=== PATIENT | female | born 1950 | race Hispanic/Latino ===

== ENCOUNTER 2018-04-29 19:27 | Inpatient (IN) | payer MEDICARE, MEDICAID ==
[2018-04-29 20:26] LABS: BASO # 0.1 K/uL (0.0-0.2); BASO % 0.3 % (0.0-2.0); EOS % 0.2 % (0.0-4.0); HEMOGLOBIN 14.2 g/dL (11.0-16.0); MEAN CELL VOLUME 89.5 fL (81.0-99.0); MEAN CORPUSCULAR HEMOGLOBIN 30.2 pg (27.0-31.0); MEAN CORPUSCULAR HGB CONC 33.7 g/dL (33.0-37.0); MEAN PLATELET VOLUME 9.5 fL (7.2-11.7); MONO % 9.8 % (0.0-10.0); NEUT % 74.7 % (50.0-75.0); RBC 4.7 Mil/uL (3.80-5.20); RED CELL DISTRIBUTION WIDTH 13.7 % (11.5-14.5); WHITE BLOOD COUNT 20.1 K/uL (4.8-10.8)
--- NOTE | 2018-04-29 20:27 | C.PDOC ---
History Of Present Illness 68 year old female with a history of seizure and HTN presents to the emergency department with complaints of lower abdominal pain. Patient states that her pain began on Monday04-27-18 after eating a sub. Patient reports vomiting and currently still complains of lower abdominal pain. Time Seen by Provider: 04/29/18 19:44 Chief Complaint (Nursing): Abdominal Pain History Per: Patient History/Exam Limitations: no limitations Onset/Duration Of Symptoms: Days (2) Current Symptoms Are (Timing): Still Present Location Of Pain/Discomfort: Other (lower abdomen) Quality Of Discomfort: "Pain" Associated Symptoms: Vomiting. denies: Fever, Chills, Nausea Past Medical History Reviewed: Historical Data, Nursing Documentation, Vital Signs Vital Signs: Last Vital Signs Temp 98.0 F 04/29/18 19:29 Pulse 80 04/29/18 19:29 Resp 20 04/29/18 19:29 BP 148/74 04/29/18 19:29 Pulse Ox 97 04/29/18 19:29 - Medical History PMH: Anxiety, HTN, Hypercholesterolemia, Seizures Surgical History: Carotid Endarterectomy - [facility] Procedures LOCAL EXCIS BREAST LES (06/26/12) Family History: States: No Known Family Hx - Social History Hx Tobacco Use: No Hx Alcohol Use: No Hx Substance Use: No - Immunization History Hx Tetanus Toxoid Vaccination: Yes Hx Influenza Vaccination: Yes Hx Pneumococcal Vaccination: Yes Review Of Systems Except As Marked, All Systems Reviewed And Found Negative. Constitutional: Negative for: Fever, Chills Cardiovascular: Negative for: Chest Pain Respiratory: Negative for: Cough, Shortness of Breath Gastrointestinal: Positive for: Vomiting, Abdominal Pain. Negative for: Nausea, Diarrhea Physical Exam - Physical Exam Appears: Non-toxic, No Acute Distress Skin: Normal Color, Warm, Dry Head: Atraumatic, Normacephalic Eye(s): bilateral: Normal Inspection, PERRL, EOMI Nose: Normal Oral Mucosa: Moist Neck: Normal, Supple Chest: Symmetrical, No Tenderness Cardiovascular: Rhythm Regular, No Murmur Respiratory: Normal Breath Sounds, No Rales, No Rhonchi, No Wheezing Gastrointestinal/Abdominal: Soft, No Tenderness, No Guarding, No Rebound Extremity: Normal ROM Neurological/Psych: Oriented x3, Normal Speech, Normal Cognition ED Course And Treatment - Laboratory Results Result Diagrams: 04/29/18 20:13 04/29/18 20:13 O2 Sat by Pulse Oximetry: 97 (RA) Pulse Ox Interpretation: Normal Medical Decision Making Medical Decision Making: ro colitis appendicits uti Plan: CT Abdomen and Pelvis CMP Lipase CBC PTT Prothrombin Time Urinalysis ct shows enteritis. high leukocytosi empiric antibiotics given. case discusse dwith dr haney. accepts. IMPRESSION: 1. Evidence of diffuse enteritis. 2. A proximal left renal arterial vascular stent is noted. Disposition - Disposition Disposition: HOSPITALIZED Disposition Time: 20:00 Condition: STABLE - Clinical Impression Clinical Impression: Enteritis Decision To Admit - InPatient: Physician Admission Certification:: needs iv antibiotics - . Bed Request Type: Regular Admitting Physician: Piter Haney Patient Diagnosis: Enteritis
[2018-04-29 20:33] LABS: INR 1.9; PROTHROMBIN TIME 21.3 SECONDS (9.7-12.2)
[2018-04-29 20:41] LABS: ALB/GLOB RATIO 1.1 (1.0-2.1); ALBUMIN 4.4 g/dL (3.5-5.0); CALCIUM 9.3 mg/dl (8.6-10.4)
[2018-04-29] MEDS ORDERED: Potassium Chloride 20 mEq ER Tab PO STA (20:43)
[2018-04-29] MEDS ORDERED: Potassium Chloride 20 mEq ER Tab PO ONE ×2 (20:51→20:52)
[2018-04-29] MEDS ORDERED: Piperacillin/Tazobact 3.375 gm 100 ML IVPB STA (21:57)
[2018-04-29] MEDS ORDERED: Piperacillin/Tazobact 3.375 gm 100 ML IVPB ONE (22:13)
[2018-04-29] MEDS: Ciprofloxacin 200mg/100ml D5W 100 ML IVPB SCH (23:45)
[2018-04-30] MEDS: Lactated Ringer's 1,000 ML IV SCH ×2 (00:07→13:04)
[2018-04-30] MEDS: metroNIDAZOLE IV 500 mg/100 ml 250 MG in Premixed IV 1 EA IVPB SCH ×4 (00:20→21:46)
[2018-04-30 01:33] VITALS: RESP 20
[2018-04-30 07:26] LABS: BASO # 0.1 K/uL (0.0-0.2); BASO % 0.4 % (0.0-2.0); EOS # 0.1 K/uL (0.0-0.7); EOS % 0.5 % (0.0-4.0); HEMOGLOBIN 13.2 g/dL (11.0-16.0); LYMPH # 1.7 K/uL (1.0-4.3); LYMPH % 11.8 % (20.0-40.0); MEAN CELL VOLUME 89.5 fL (81.0-99.0); MEAN CORPUSCULAR HEMOGLOBIN 30.6 pg (27.0-31.0); MEAN CORPUSCULAR HGB CONC 34.2 g/dL (33.0-37.0); MEAN PLATELET VOLUME 9.8 fL (7.2-11.7); MONO # 1.4 K/uL (0.0-0.8); MONO % 9.5 % (0.0-10.0); NEUT # 11.3 K/uL (1.8-7.0); NEUT % 77.8 % (50.0-75.0); NRBC % 0.1 % (0.0-2.0); RBC 4.29 Mil/uL (3.80-5.20); RED CELL DISTRIBUTION WIDTH 13.6 % (11.5-14.5); WHITE BLOOD COUNT 14.5 K/uL (4.8-10.8)
[2018-04-30 08:19] LABS: ALB/GLOB RATIO 1.1 (1.0-2.1); ALBUMIN 3.9 g/dL (3.5-5.0); CALCIUM 8.5 mg/dl (8.6-10.4)
[2018-04-30] MEDS: Magnesium Sulfate 1 gm in D5W 1 GM/100 ML BAG IVPB SCH ×2 (08:50→10:06)
[2018-04-30] MEDS ORDERED: Potassium Phosphate 15 MMOLE in Dextrose 5% In Water 250 ML IVPB ONE (09:00)
[2018-04-30] MEDS: Pantoprazole 40 mg EC Tab PO SCH (09:30)
--- NOTE | 2018-04-30 10:32 | US ---
Abdominal ultrasound HISTORY: Abdominal pain. COMPARISON: CT scan dated 04/29/2018 Technique: Real-time sonography was performed through the abdomen. Findings: Liver: 18.1 centimeters in length. Prominent. Increased echogenicity of the hepatic parenchymal cortex suggestive for fatty infiltration versus hepatic parenchymal disease. Clinical correlation. Gallbladder: No calculi or sludge. Normal wall thickness of 2.3 millimeters. Negative sonographic Liz's sign. Common bile duct measures 4.8 millimeters, within normal limits. Limited visualization of the pancreas. Spleen measures 11.8 centimeters in length, within normal limits. Visualized aorta and IVC are preserved. Right kidney: 10.4 x 4.5 x 4.8 centimeters. No calculi or hydronephrosis. Left kidney: 9.5 x 4.5 x 4.8 centimeters. No calculi or hydronephrosis. Impression: 1. Hepatomegaly with increased echogenicity of the hepatic parenchymal cortex suggestive for fatty infiltration versus hepatic parenchymal disease. Clinical correlation. 2. Limited visualization of the pancreas.
[2018-04-30] MEDS: Ciprofloxacin 200mg/100ml D5W 100 ML IVPB SCH ×2 (10:48→22:32)
--- NOTE | 2018-04-30 12:45 | CT ---
PROCEDURE: CT Abdomen and Pelvis without Oral or IV contrast. HISTORY: lower abd pain,leukocytosis COMPARISON: Abdominal ultrasound performed 04/30/18 TECHNIQUE: Contiguous axial images of the abdomen and pelvis. No oral or IV contrast administered. Coronal and Sagittal reformats generated and reviewed. Radiation dose: Total exam DLP = 964.95 mGy-cm. This CT exam was performed using one or more of the following dose reduction techniques: Automated exposure control, adjustment of the mA and/or kV according to patient size, and/or use of iterative reconstruction technique. FINDINGS: There is limited evaluation of the solid organs without the administration of IV contrast. LOWER THORAX: No visible consolidation, pleural effusion, or pneumothorax. LIVER: Unremarkable unenhanced appearance. GALLBLADDER AND BILE DUCTS: Unremarkable unenhanced appearance. PANCREAS: Unremarkable unenhanced appearance. SPLEEN: Unremarkable unenhanced appearance. ADRENALS: Bilateral adrenal gland hypertrophy. KIDNEYS AND URETERS: No hydronephrosis or obstructing renal calculus. BLADDER: Under distention of the urinary bladder limits evaluation. REPRODUCTIVE: Uterus is present with evidence of degenerating fibroids. APPENDIX: The appendix appears within normal limits of caliber. No secondary signs of acute appendicitis. BOWEL: The stomach is nondistended. Lack of oral contrast limits evaluation for bowel pathology. The bowel loops appear within normal limits of caliber without evidence of intestinal obstruction. Thick-walled loops of fluid-filled small bowel may be related to enteritis. PERITONEUM: No significant free fluid. No definite free air. LYMPH NODES: No bulky lymphadenopathy identified. VASCULATURE: Proximal left renal artery vascular stent. Atherosclerotic calcifications of the aorta and branches. Short segment in dissection, infrarenal lower abdominal aorta. BONES: Osseous demineralization. Degenerative changes. OTHER FINDINGS: None. IMPRESSION: Thick-walled loops of fluid-filled small bowel may be related to enteritis. Correlate clinically. Bilateral adrenal gland hypertrophy. Proximal left renal artery vascular stent. Atherosclerotic calcifications of the aorta and branches. Short segment in dissection, infrarenal lower abdominal aorta. Preliminary impression was provided by [employer].
--- NOTE | 2018-04-30 13:09 | CP.PCM.HP ---
History of Present Illness - History of Present Illness History of Present Illness: Chief complaint: Abdominal pain vomiting and diarrhea HPI: 68-year-old female with a history of hypertension, hypercholesterolemia, CVA, renal artery stenosis, status post a stent in the left renal artery, carotid endarterectomy, CAD, status post heart disease stent, history of seizure activities, chronic smoker and a history of anxiety depression. Patient was in her usual state of health. 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 Since then she was not able to eat well. Appetite was very poor. She gets more dehydrated. Not even water, she could not drink. She was having increasing weakness, unable to stand up. Low-grade fever also noted. Chills noted. She was also having some headache. Past medical history: Hypertension, hypercholesterolemia, multiple CVA, history of renal artery stenosis, bilateral carotid endarterectomy, CAD, status post stent, anxiety and depression. Past surgical history: Thyroidectomy, carotid endarterectomy, left renal stent, left arm fracture malunion, history of cardiac stenting. Allergies: Allergic to penicillin, ibuprofen. Family history: Father had a history of lung cancer and a history of smoking Mother also had a history of heart disease and siblings had a history of prostate cancer Social history: Patient is a smoker smokes almost 2 packs/day denies any alcohol. She drinks coffee daily. Current medications: Metformin, amlodipine, aspirin, sotalol, hydrochlorothiazide, atorvastatin, alendronate, Nexium, Eliquis, sertraline, vitamin D, calcium. Review of system: Complaining of dryness of mouth, weakness, fatigue. Poor appetite. Poor intake. Episodes of nausea. Multiple episodes of vomiting. Abdominal cramps pains. Diarrhea one episode of large. Weakness in the legs. On examination: Vital signs are stable. Mild orthostasis noted. Chest good air entry Regular heart sounds noted Abdomen diffusely tenderness present. Extremities no pedal edema PROPERTY SPECIALIST alert awake oriented x3 no functional neurological deficit Patient's labs reviewed Highly elevated WBC noted, mostly lymphocytosis noted CT scan of the abdomen and pelvis with oral contrast showing evidence of colitis, enteritis and gastroenteritis noted Assessment and recommendation: Patient is a 68-year-old female with a history of hypertension hypercholesterolemia CAD, carotid endarterectomy, renal stent for renal artery stenosis. COPD. History of smoking. Now admitted with a severe diffuse gastroenteritis with elevated white count. Septicemia likely. Underlying infectious diarrhea cannot be ruled out. Patient currently placed on IV antibiotic. She tolerated Zosyn yesterday. Currently on Cipro IV, as well as Flagyl intravenously. Stool workup currently pending. IV fluids. Will increase slowly the oral feeding. DVT GI prophylaxis Currently on Eliquis. We will continue to monitor and will follow the patient. Possible discharge plan once the diarrhea improves. And if she tolerates oral feeding and if the WBC improves. GI evaluation pending Present on Admission - Present on Admission Any Indicators Present on Admission: No History of DVT/PE: No History of Uncontrolled Diabetes: No Urinary Catheter: No Decubitus Ulcer Present: No Past Patient History - Past Medical History & Family History Past Medical History?: Yes - Past Social History Smoking Status: Heavy Smoker > 10 Cigarettes Daily - CARDIAC Hx Cardiac Disorders: Yes Hx Hypercholesterolemia: Yes Hx Hypertension: Yes - PULMONARY Hx Respiratory Disorders: Yes Hx Chronic Obstructive Pulmonary Disease (COPD): Yes Other/Comment: hx of intubation - NEUROLOGICAL Hx Neurological Disorder: Yes Hx Seizures: Yes - HEENT Hx HEENT Problems: No - RENAL Hx Chronic Kidney Disease: No - ENDOCRINE/METABOLIC Hx Endocrine Disorders: No - HEMATOLOGICAL/ONCOLOGICAL Hx Blood Disorders: No - INTEGUMENTARY Hx Dermatological Problems: No - MUSCULOSKELETAL/RHEUMATOLOGICAL Hx Musculoskeletal Disorders: No Hx Falls: No - GASTROINTESTINAL Hx Gastrointestinal Disorders: No - GENITOURINARY/GYNECOLOGICAL Hx Genitourinary Disorders: No - PSYCHIATRIC Hx Psychophysiologic Disorder: No Hx Substance Use: No - SURGICAL HISTORY Hx Surgeries: Yes Hx Carotid Endarterectomy: Yes - ANESTHESIA Hx Anesthesia: Yes Hx Anesthesia Reactions: No Hx Malignant Hyperthermia: No Meds Home Medications: Home Medication List Medication Instructions Recorded Confirmed Type Ciprofloxacin [Cipro] 500 mg PO BID #20 tab 04/29/18 Rx metroNIDAZOLE [Flagyl] 500 mg PO TID #30 tab 04/29/18 Rx Allergies/Adverse Reactions: Allergies Allergy/AdvReac Type Severity Reaction Status Date / Time No Known Allergies Allergy Verified 04/29/18 19:32 Results - Vital Signs Recent Vital Signs: Last Vital Signs Temp 99.9 F H 04/30/18 07:14 Pulse 96 H 04/30/18 09:28 Resp 20 04/30/18 07:14 BP 152/74 H 04/30/18 09:28 Pulse Ox 94 L 04/30/18 07:14 - Labs Result Diagrams: 04/30/18 07:09 04/30/18 07:09 Labs: Laboratory Results - last 24 hr 04/29/18 04/29/18 04/29/18 20:13 20:13 20:13 WBC 20.1 H D RBC 4.70 Hgb 14.2 Hct 42.0 MCV 89.5 MCH 30.2 MCHC 33.7 RDW 13.7 Plt Count 256 MPV 9.5 Neut % (Auto) 74.7 Lymph % (Auto) 15.0 L [place] % (Auto) 9.8 Eos % (Auto) 0.2 Baso % (Auto) 0.3 Neut # (Auto) 15.0 H Lymph # (Auto) 3.0 [place] # (Auto) 2.0 H Eos # (Auto) 0.0 Baso # (Auto) 0.1 PT 21.3 H INR 1.9 APTT 36 H Sodium 134 Potassium 3.2 L Chloride 91 L Carbon Dioxide 30 Anion Gap 16 BUN 22 H Creatinine 1.6 H Est GFR ( Amer) 39 Est GFR (Non-Af Amer) 32 Random Glucose 156 H D Calcium 9.3 Phosphorus Magnesium Total Bilirubin 0.8 AST 35 ALT 15 Alkaline Phosphatase 89 Total Protein 8.4 H Albumin 4.4 Globulin 4.0 H Albumin/Globulin Ratio 1.1 Lipase 36 04/30/18 04/30/18 07:09 07:09 WBC 14.5 H RBC 4.29 Hgb 13.2 Hct 38.4 MCV 89.5 MCH 30.6 MCHC 34.2 RDW 13.6 Plt Count 202 MPV 9.8 Neut % (Auto) 77.8 H Lymph % (Auto) 11.8 L [place] % (Auto) 9.5 Eos % (Auto) 0.5 Baso % (Auto) 0.4 Neut # (Auto) 11.3 H Lymph # (Auto) 1.7 [place] # (Auto) 1.4 H Eos # (Auto) 0.1 Baso # (Auto) 0.1 PT INR APTT Sodium 132 Potassium 3.0 L Chloride 92 L Carbon Dioxide 32 H Anion Gap 11 BUN 22 H Creatinine 1.4 H Est GFR ( Amer) 46 Est GFR (Non-Af Amer) 38 Random Glucose 139 H Calcium 8.5 L Phosphorus 1.9 L Magnesium 1.4 L Total Bilirubin 0.8 AST 36 ALT 10 Alkaline Phosphatase 86 Total Protein 7.4 Albumin 3.9 Globulin 3.5 Albumin/Globulin Ratio 1.1 Lipase
--- NOTE | 2018-04-30 16:34 | CP.PCM.CON ---
History of Present Illness - History of Present Illness History of Present Illness: CC: Diarrhea HPI: 68 yo woman with multiple medical problems developed severe watery malodorous black diarrhea 2 nights ago after eating a [employer] and TV dinner. About 6 hours later she felt lower abdominal cramping, followed by nausea then persistent diarrhea. Pt denies fevers, chills, blood in stool. Pt was found to have leukocytosis on admission and non-contrast abdominal CT showed thieckened loops of Small Bowel. Patient was placed on Cipro and Flagyl. Review of Systems - Constitutional Constitutional: absent: Chills, Fever, Weight Loss - EENT Eyes: absent: Change in Vision - Cardiovascular Cardiovascular: absent: Chest Pain - Respiratory Respiratory: absent: Dyspnea - Gastrointestinal Gastrointestinal: Abdominal Pain, Diarrhea. absent: Hematochezia - Psychiatric Psychiatric: Anxiety Past Patient History - Past Medical History & Family History Past Medical History?: Yes - Past Social History Smoking Status: Heavy Smoker > 10 Cigarettes Daily - CARDIAC Hx Cardiac Disorders: Yes Hx Hypercholesterolemia: Yes Hx Hypertension: Yes - PULMONARY Hx Respiratory Disorders: Yes Hx Chronic Obstructive Pulmonary Disease (COPD): Yes Other/Comment: hx of intubation - NEUROLOGICAL Hx Neurological Disorder: Yes Hx Seizures: Yes - HEENT Hx HEENT Problems: No - RENAL Hx Chronic Kidney Disease: No - ENDOCRINE/METABOLIC Hx Endocrine Disorders: No - HEMATOLOGICAL/ONCOLOGICAL Hx Blood Disorders: No - INTEGUMENTARY Hx Dermatological Problems: No - MUSCULOSKELETAL/RHEUMATOLOGICAL Hx Musculoskeletal Disorders: No Hx Falls: No - GASTROINTESTINAL Hx Gastrointestinal Disorders: No - GENITOURINARY/GYNECOLOGICAL Hx Genitourinary Disorders: No - PSYCHIATRIC Hx Psychophysiologic Disorder: No Hx Substance Use: No - SURGICAL HISTORY Hx Surgeries: Yes Hx Carotid Endarterectomy: Yes - ANESTHESIA Hx Anesthesia: Yes Hx Anesthesia Reactions: No Hx Malignant Hyperthermia: No Meds Home Medications: Home Medication List Medication Instructions Recorded Confirmed Type Ciprofloxacin [Cipro] 500 mg PO BID #20 tab 04/29/18 Rx metroNIDAZOLE [Flagyl] 500 mg PO TID #30 tab 04/29/18 Rx Allergies/Adverse Reactions: Allergies Allergy/AdvReac Type Severity Reaction Status Date / Time No Known Allergies Allergy Verified 04/29/18 19:32 - Medications Medications: Current Medications Acetaminophen (Tylenol 325mg Tab) 650 mg PO Q6 PRN PRN Reason: Pain, moderate (4-7) Amlodipine Besylate (Norvasc) 10 mg PO DAILY [facility] Last Admin: 04/30/18 09:29 Dose: 10 mg Apixaban (Eliquis) 5 mg PO BID [facility] Last Admin: 04/30/18 09:30 Dose: 5 mg Aspirin (Aspirin Chewable) 81 mg PO DAILY [facility] Last Admin: 04/30/18 09:29 Dose: 81 mg Clonazepam (Klonopin) 1 mg PO HS [facility] Ciprofloxacin (Cipro 200mg/100ml D5w) 100 mls @ 67 mls/hr IVPB Q12H [facility]; Protocol Last Admin: 04/30/18 10:48 Dose: 67 mls/hr Metronidazole 250 mg/ (Miscellaneous) 50 mls @ 100 mls/hr IVPB Q8H [facility]; Protocol Last Admin: 04/30/18 13:55 Dose: 100 mls/hr Lactated Ringer's (Lactated Ringer's) 1,000 mls @ 70 mls/hr IV .[id number] [facility] Last Admin: 04/30/18 13:04 Dose: Not Given Levetiracetam (Keppra) 500 mg PO BID [facility] Last Admin: 04/30/18 09:30 Dose: 500 mg Pantoprazole Sodium (Protonix Ec Tab) 40 mg PO DAILY [facility] Last Admin: 04/30/18 09:30 Dose: 40 mg Rosuvastatin Calcium (Crestor) 40 mg PO HS [facility] Sertraline HCl (Zoloft) 100 mg PO HS [facility] Sotalol HCl (Betapace) 80 mg PO BID [facility] Last Admin: 04/30/18 09:30 Dose: 80 mg Physical Exam - Constitutional Appears: Well, No Acute Distress - Head Exam Head Exam: ATRAUMATIC, NORMOCEPHALIC - Eye Exam Eye Exam: absent: Scleral icterus - Neck Exam Neck exam: Positive for: Normal Inspection - Respiratory Exam Respiratory Exam: Clear to Auscultation Bilateral - Cardiovascular Exam Cardiovascular Exam: REGULAR RHYTHM - GI/Abdominal Exam GI & Abdominal Exam: Soft. absent: Mass, Organomegaly, Tenderness Results - Vital Signs Recent Vital Signs: Last Vital Signs Temp 97.2 F L 04/30/18 15:00 Pulse 68 04/30/18 15:00 Resp 20 04/30/18 15:00 BP 171/73 H 04/30/18 15:00 Pulse Ox 95 04/30/18 15:00 - Labs Result Diagrams: 04/30/18 07:09 04/30/18 07:09 Labs: Laboratory Results - last 24 hr 04/29/18 04/29/18 04/29/18 20:13 20:13 20:13 WBC 20.1 H D RBC 4.70 Hgb 14.2 Hct 42.0 MCV 89.5 MCH 30.2 MCHC 33.7 RDW 13.7 Plt Count 256 MPV 9.5 Neut % (Auto) 74.7 Lymph % (Auto) 15.0 L [place] % (Auto) 9.8 Eos % (Auto) 0.2 Baso % (Auto) 0.3 Neut # (Auto) 15.0 H Lymph # (Auto) 3.0 Stanley # (Auto) 2.0 H Eos # (Auto) 0.0 Baso # (Auto) 0.1 PT 21.3 H INR 1.9 APTT 36 H Sodium 134 Potassium 3.2 L Chloride 91 L Carbon Dioxide 30 Anion Gap 16 BUN 22 H Creatinine 1.6 H Est GFR ( Amer) 39 Est GFR (Non-Af Amer) 32 Random Glucose 156 H D Calcium 9.3 Phosphorus Magnesium Total Bilirubin 0.8 AST 35 ALT 15 Alkaline Phosphatase 89 Total Protein 8.4 H Albumin 4.4 Globulin 4.0 H Albumin/Globulin Ratio 1.1 Lipase 36 Stool Occult Blood 04/30/18 04/30/18 04/30/18 07:09 07:09 13:12 WBC 14.5 H RBC 4.29 Hgb 13.2 Hct 38.4 MCV 89.5 MCH 30.6 MCHC 34.2 RDW 13.6 Plt Count 202 MPV 9.8 Neut % (Auto) 77.8 H Lymph % (Auto) 11.8 L Stanley % (Auto) 9.5 Eos % (Auto) 0.5 Baso % (Auto) 0.4 Neut # (Auto) 11.3 H Lymph # (Auto) 1.7 Stanley # (Auto) 1.4 H Eos # (Auto) 0.1 Baso # (Auto) 0.1 PT INR APTT Sodium 132 Potassium 3.0 L Chloride 92 L Carbon Dioxide 32 H Anion Gap 11 BUN 22 H Creatinine 1.4 H Est GFR ( Amer) 46 Est GFR (Non-Af Amer) 38 Random Glucose 139 H Calcium 8.5 L Phosphorus 1.9 L Magnesium 1.4 L Total Bilirubin 0.8 AST 36 ALT 10 Alkaline Phosphatase 86 Total Protein 7.4 Albumin 3.9 Globulin 3.5 Albumin/Globulin Ratio 1.1 Lipase Stool Occult Blood Positive H Assessment & Plan (1) Enteritis Assessment and Plan: Acute diarrheal illness, likely infectious. Stool positive OB (on Eliquis and ASA), with stable Hgb levels. Rec: check stools for culture, hydrate IV, conservative management. Status: Acute
[2018-04-30 19:54] LABS: C DIFF TOXIN A B NEGATIVE (NEGATIVE)
[2018-04-30 20:48] LABS: SQUAMOUS EPITHIAL 6 /hpf (0-5); URINE BACTERIA RARE (<OCC); URINE BILIRUBIN NEGATIVE (NEGATIVE); URINE BLOOD 1+ (NEGATIVE); URINE CLARITY Hazy (Clear); URINE COLOR Amber (YELLOW); URINE GLUCOSE (UA) NORMAL (Normal); URINE LEUKOCYTE ESTERASE 2+ Leu/uL (Negative); URINE PROTEIN NEGATIVE (NEGATIVE); URINE UROBILINOGEN NORMAL mg/dL (0.2-1.0)
[2018-04-30 21:42] LABS: FECAL LEUKOCYTES NEGATIVE (NEGATIVE)
[2018-05-01] MEDS: Lactated Ringer's 1,000 ML IV SCH (03:21)
[2018-05-01] MEDS: metroNIDAZOLE IV 500 mg/100 ml 250 MG in Premixed IV 1 EA IVPB SCH (05:47)
[2018-05-01 08:09] LABS: BASO % 0.4 % (0.0-2.0); EOS # 0.2 K/uL (0.0-0.7); EOS % 1.5 % (0.0-4.0); HEMOGLOBIN 12.7 g/dL (11.0-16.0); LYMPH # 1.7 K/uL (1.0-4.3); LYMPH % 14.8 % (20.0-40.0); MEAN CELL VOLUME 89.3 fL (81.0-99.0); MEAN CORPUSCULAR HEMOGLOBIN 30.8 pg (27.0-31.0); MEAN CORPUSCULAR HGB CONC 34.5 g/dL (33.0-37.0); MEAN PLATELET VOLUME 9.5 fL (7.2-11.7); MONO # 0.7 K/uL (0.0-0.8); MONO % 6.1 % (0.0-10.0); NEUT % 77.2 % (50.0-75.0); NRBC % 0.1 % (0.0-2.0); RBC 4.12 Mil/uL (3.80-5.20); RED CELL DISTRIBUTION WIDTH 13.5 % (11.5-14.5); WHITE BLOOD COUNT 11.7 K/uL (4.8-10.8)
[2018-05-01 08:13] VITALS: TEMP 98.1; O2SAT 93
[2018-05-01 08:36] LABS: ALBUMIN 3.7 g/dL (3.5-5.0); CALCIUM 8.5 mg/dl (8.6-10.4)
[2018-05-01 09:38] VITALS: BP 129/71; PULSE 98
[2018-05-01] MEDS: Pantoprazole 40 mg EC Tab PO SCH (09:52)
[2018-05-01] MEDS: Ciprofloxacin 200mg/100ml D5W 100 ML IVPB SCH (10:18)
--- NOTE | 2018-05-01 10:33 | CP.PCM.DIS ---
Provider - Provider Date of Admission: 04/29/18 22:10 Attending physician: Piter Haney MD Consults: 04/29/18 22:41 Gastroenterology Consult Routine Comment: Consulting Provider: Carlos Cat Consulting Physician: Carlos Cat Reason for Consult: enteritis (call in AM) 04/29/18 23:55 Inpatient MANUFACTURE SPECIALIST Core Measures Referral Routine Comment: Physician Instructions: Reason For Exam: History of COPD Time Spent in preparation of Discharge (in minutes): 45 Hospital Course - Lab Results Lab Results: Micro Results 04/30/18 03:10 Blood Blood Culture - Preliminary NO GROWTH AFTER 24 HOURS 04/30/18 03:09 Blood Blood Culture - Preliminary NO GROWTH AFTER 24 HOURS Most Recent Lab Values WBC 11.7 K/uL (4.8-10.8) H 05/01/18 07:54 RBC 4.12 Mil/uL (3.80-5.20) 05/01/18 07:54 Hgb 12.7 g/dL (11.0-16.0) 05/01/18 07:54 Hct 36.8 % (34.0-47.0) 05/01/18 07:54 MCV 89.3 fL (81.0-99.0) 05/01/18 07:54 MCH 30.8 pg (27.0-31.0) 05/01/18 07:54 MCHC 34.5 g/dL (33.0-37.0) 05/01/18 07:54 RDW 13.5 % (11.5-14.5) 05/01/18 07:54 Plt Count 203 K/uL (130-400) 05/01/18 07:54 MPV 9.5 fL (7.2-11.7) 05/01/18 07:54 Neut % (Auto) 77.2 % (50.0-75.0) H 05/01/18 07:54 Lymph % (Auto) 14.8 % (20.0-40.0) L 05/01/18 07:54 [place] % (Auto) 6.1 % (0.0-10.0) 05/01/18 07:54 Eos % (Auto) 1.5 % (0.0-4.0) 05/01/18 07:54 Baso % (Auto) 0.4 % (0.0-2.0) 05/01/18 07:54 Neut # (Auto) 9.0 K/uL (1.8-7.0) H 05/01/18 07:54 Lymph # (Auto) 1.7 K/uL (1.0-4.3) 05/01/18 07:54 [place] # (Auto) 0.7 K/uL (0.0-0.8) 05/01/18 07:54 Eos # (Auto) 0.2 K/uL (0.0-0.7) 05/01/18 07:54 Baso # (Auto) 0.0 K/uL (0.0-0.2) 05/01/18 07:54 PT 21.3 SECONDS (9.7-12.2) H 04/29/18 20:13 INR 1.9 04/29/18 20:13 APTT 36 SECONDS (21-34) H 04/29/18 20:13 Sodium 136 mmol/L (132-148) 05/01/18 07:54 Potassium 3.1 mmol/L (3.6-5.2) L 05/01/18 07:54 Chloride 96 mmol/L (98-107) L 05/01/18 07:54 Carbon Dioxide 31 mmol/L (22-30) H 05/01/18 07:54 Anion Gap 13 (10-20) 05/01/18 07:54 BUN 16 mg/dL (7-17) 05/01/18 07:54 Creatinine 1.3 mg/dL (0.7-1.2) H 05/01/18 07:54 Est GFR ( Amer) 50 05/01/18 07:54 Est GFR (Non-Af Amer) 41 05/01/18 07:54 Random Glucose 144 mg/dL (65-105) H 05/01/18 07:54 Calcium 8.5 mg/dl (8.6-10.4) L 05/01/18 07:54 Phosphorus 1.9 mg/dL (2.5-4.5) L 04/30/18 07:09 Magnesium 1.4 mg/dL (1.6-2.3) L 04/30/18 07:09 Total Bilirubin 0.5 mg/dL (0.2-1.3) 05/01/18 07:54 AST 35 U/L (14-36) 05/01/18 07:54 ALT 19 U/L (9-52) 05/01/18 07:54 Alkaline Phosphatase 79 U/L (38-126) 05/01/18 07:54 Total Protein 7.2 g/dL (6.3-8.3) 05/01/18 07:54 Albumin 3.7 g/dL (3.5-5.0) 05/01/18 07:54 Globulin 3.5 gm/dL (2.2-3.9) 05/01/18 07:54 Albumin/Globulin Ratio 1.0 (1.0-2.1) 05/01/18 07:54 Lipase 36 U/L (23-300) 04/29/18 20:13 Urine Color [place] (YELLOW) 04/30/18 20:18 Urine Clarity Hazy (Clear) 04/30/18 20:18 Urine pH 5.0 (5.0-8.0) 04/30/18 20:18 Ur Specific [place] 1.008 (1.003-1.030) 04/30/18 20:18 Urine Protein Negative mg/dL (NEGATIVE) 04/30/18 20:18 Urine Glucose (UA) Normal mg/dL (Normal) 04/30/18 20:18 Urine Ketones Negative mg/dL (NEGATIVE) 04/30/18 20:18 Urine Blood 1+ (NEGATIVE) H 04/30/18 20:18 Urine Nitrate Negative (NEGATIVE) 04/30/18 20:18 Urine Bilirubin Negative (NEGATIVE) 04/30/18 20:18 Urine Urobilinogen Normal mg/dL (0.2-1.0) 04/30/18 20:18 Ur Leukocyte Esterase 2+ Khris/uL (Negative) H 04/30/18 20:18 Urine WBC (Auto) 15 /hpf (0-5) H 04/30/18 20:18 Urine RBC (Auto) 11 /hpf (0-3) H 04/30/18 20:18 Ur Squamous Epith Cells 6 /hpf (0-5) H 04/30/18 20:18 Urine Bacteria Rare (<OCC) 04/30/18 20:18 Stool Occult Blood Positive (NEGATIVE) H 04/30/18 13:12 Stool Leukocytes, Qual Negative (NEGATIVE) 04/30/18 16:42 C. difficile Ag & Toxin Negative (NEGATIVE) 04/30/18 16:42 - Hospital Course Hospital Course: Chief complaint: Abdominal pain vomiting and diarrhea HPI: 68-year-old female with a history of hypertension, hypercholesterolemia, CVA, renal artery stenosis, status post a stent in the left renal artery, carotid endarterectomy, CAD, status post heart disease stent, history of seizure activities, chronic smoker and a history of anxiety depression. Patient was in her usual state of health. 3 days ago she ate [place] sandwich, and also she had a TV dinner from [employer], that night to home office claim specialist she started noticing sudden onset of multiple episodes of vomiting, vomiting mostly bilious, and following that vomiting the next day she started having some abdominal pain cramps and associate with the large episode of watery diarrhea. Since then she was not able to eat well. Appetite was very poor. She gets more dehydrated. Not even water, she could not drink. She was having increasing weakness, unable to stand up. Low-grade fever also noted. Chills noted. She was also having some headache. Past medical history: Hypertension, hypercholesterolemia, multiple CVA, history of renal artery stenosis, bilateral carotid endarterectomy, CAD, status post stent, anxiety and depression. Past surgical history: Thyroidectomy, carotid endarterectomy, left renal stent, left arm fracture malunion, history of cardiac stenting. Allergies: Allergic to penicillin, ibuprofen. Family history: Father had a history of lung cancer and a history of smoking Mother also had a history of heart disease and siblings had a history of prostate cancer Social history: Patient is a smoker smokes almost 2 packs/day denies any alcohol. She drinks coffee daily. Current medications: Metformin, amlodipine, aspirin, sotalol, hydrochlorothiazide, atorvastatin, alendronate, Nexium, Eliquis, sertraline, vitamin D, calcium. Review of system: Complaining of dryness of mouth, weakness, fatigue. Poor appetite. Poor intake. Episodes of nausea. Multiple episodes of vomiting. Abdominal cramps pains. Diarrhea one episode of large. Weakness in the legs. On examination: Vital signs are stable. Mild orthostasis noted. Chest good air entry Regular heart sounds noted Abdomen diffusely tenderness present. Extremities no pedal edema CONTROL ROOM TECHNICIAN alert awake oriented x3 no functional neurological deficit Patient's labs reviewed Highly elevated WBC noted, mostly lymphocytosis noted CT scan of the abdomen and pelvis with oral contrast showing evidence of colitis, enteritis and gastroenteritis noted Assessment and recommendation: Patient is a 68-year-old female with a history of hypertension hypercholesterolemia CAD, carotid endarterectomy, renal stent for renal artery stenosis. COPD. History of smoking. Now admitted with a severe diffuse gastroenteritis with elevated white count. Septicemia likely. Underlying infectious diarrhea cannot be ruled out. Patient currently placed on IV antibiotic. She tolerated Zosyn yesterday. Currently on Cipro IV, as well as Flagyl intravenously. Stool workup currently pending. IV fluids. Will increase slowly the oral feeding. DVT GI prophylaxis Currently on Eliquis. We will continue to monitor and will follow the patient. Possible discharge plan once the diarrhea improves. And if she tolerates oral feeding and if the WBC improves. GI evaluation pending Course in the hospital: Patient was admitted to the hospital with the diagnosis of acute gastritis, enteritis, and also there is a signs of bacterial infection. Stool leukocytes are positive. Seen by php website developer. Patient started on ciprofloxacin, Flagyl, patient markedly improved in her symptoms. Currently tolerating a solid diet. No more diarrhea noted, denies any abdominal pain. Final diagnosis acute food poisoning, associated with gastroenteritis. Dehydration. Patient is improving markedly. She will be discharged home She will continue ciprofloxacin 250 mg twice daily, Flagyl 250 mg 3 times a day for 1 week. The cultures of the stool currently pending. I will follow-up the patient in 1 week in my office. Recommended bland diet . Discharge Exam - Head Exam Head Exam: ATRAUMATIC, NORMOCEPHALIC Discharge Plan - Discharge Medications Prescriptions: Ciprofloxacin [Cipro] 500 mg PO BID #20 tab metroNIDAZOLE [Flagyl] 500 mg PO TID #30 tab - Follow Up Plan Condition: STABLE Disposition: HOME/ ROUTINE Instructions: Colitis, Leaving Against Medical Advice Additional Instructions: return to er with worsening symptoms or concerns Referrals: Du Barclay MD [Staff Provider] -
[2018-05-01] MEDS ORDERED: Potassium Chloride 20 mEq/15 ml LIQ UD PO ONE (11:30)
--- NOTE | 2018-05-01 14:49 | CP.PCM.PN ---
Subjective - Date & Time of Evaluation Date of Evaluation: 04/30/18 Time of Evaluation: 14:48 - Subjective Subjective: Patient is still having some abdominal pain minimal. But she is able to tolerate the liquid diet. Seen by handicapped teacher. No nausea no vomiting at this time. Feeling weak. Currently on IV fluids On examination: Vital signs are stable. Chest good air entry regular heart sounds l nontender abdomen. Labs reviewed Low potassium level noted. Supplemented Assessment and recommendation: 68-year-old female with multiple medical problems including vasculopathy atherosclerosis heart disease multiple stents admitted with a gastroenteritis with severe sepsis. Improving. Clinically stable. We will advance the diet tomorrow and if possible discharge Objective - Vital Signs/Intake and Output Vital Signs (last 24 hours): Temp Pulse Resp BP Pulse Ox 98.1 F 98 H 20 129/71 93 L 05/01/18 08:00 05/01/18 09:38 05/01/18 08:00 05/01/18 09:38 05/01/18 08:00 Intake and Output: 05/01/18 05/01/18 06:59 18:59 Intake Total 1280 Balance 1280 - Labs Labs: 05/01/18 07:54 05/01/18 07:54 PT 21.3 SECONDS (9.7-12.2) H 04/29/18 20:13 INR 1.9 04/29/18 20:13 APTT 36 SECONDS (21-34) H 04/29/18 20:13
== END 2018-05-01 12:35 | disposition home or self-care (01) | DRG 392 ==
LOC: C.ER 19:27 → C.9E 22:10 → C.5S 22:48
PROVIDERS: ADMIT Internal Medicine; ATTEND Internal Medicine
DX: A09 Infectious gastroenteritis and colitis, unspecified (principal); T62.8X1A Toxic effect of other specified noxious substances eaten as food, accidental (unintentional), initial encounter; E86.0 Dehydration; E87.6 Hypokalemia; E89.0 Postprocedural hypothyroidism; I10 Essential (primary) hypertension; I25.10 Atherosclerotic heart disease of native coronary artery without angina pectoris; J44.9 Chronic obstructive pulmonary disease, unspecified; I70.1 Atherosclerosis of renal artery; F41.9 Anxiety disorder, unspecified; F17.210 Nicotine dependence, cigarettes, uncomplicated; E78.00 Pure hypercholesterolemia, unspecified; Z96.0 Presence of urogenital implants; Z79.01 Long term (current) use of anticoagulants; Z86.73 Personal history of transient ischemic attack (TIA), and cerebral infarction without residual deficits; Z95.5 Presence of coronary angioplasty implant and graft; Z88.6 Allergy status to analgesic agent; Z88.0 Allergy status to penicillin